=== PATIENT | female | born 1985 | race Caucasian/White ===

== ENCOUNTER 2024-11-27 11:45 | Outpatient (CLI) | payer BC, SELFPAY ==
--- NOTE | 2024-11-27 11:47 | XR_ITS ---
FINAL REPORT CLINICAL HISTORY: Left knee pain FINDINGS: AP, lateral and oblique views of the left knee were obtained. There is no prior exam for comparison. There is no acute osseous abnormality of the left knee. The joint space is preserved. The soft tissues are normal. There is no joint effusion. IMPRESSION: No acute osseous abnormality of the left knee. Authenticated and ERN
== END 2024-11-27 23:59 | disposition home or self-care (01) ==
LOC: RAD 11:47
PROVIDERS: PCP Internal Medicine; Visit Provider Internal Medicine
DX: M25.562 Pain in left knee (principal)
CPT/HCPCS: 73562